=== PATIENT | male | born 1975 | race Caucasian/White ===

== ENCOUNTER 2020-05-28 04:34 | Inpatient (IN) | payer MEDICARE, OTHER ==
[~2020-05-28] VITALS: Ht 175.3 cm; Wt 91.2 kg
--- NOTE | 2020-05-28 04:39 | NUR ---
PT AAOX4. 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 PT WAS GIVEN 2NITRO SL AND ASPIRIN. PT PLACED IN BED 9 ON MONITOR AND PULSE OX. PT STATED HIS CP RADIATES TO HIS BACK AND L ARM. AWAITING MD FOR EVLA AND ORDERS.
[2020-05-28] MEDS ORDERED: MORPHINE SULFATE INJ 2 MG/ML DISP.SYRIN IV ONE (05:00)
[2020-05-28] MEDS ORDERED: MORPHINE SULFATE INJ 2 MG/ML DISP.SYRIN ONE (05:12)
--- NOTE | 2020-05-28 05:29 | NUR ---
VILMAID SWABBED, SENT TO LAB.
--- NOTE | 2020-05-28 05:32 | NUR ---
TECHNICIAN AUTOMATED EQUIPMENT AT BEDSIDE FOR LABS. UNABLE TO DRAW, WILL CALL ANOTHER TECHNICIAN AUTOMATED EQUIPMENT.
[2020-05-28 06:00] LABS: BASOPHILS % (AUTO) 0.2 % (0.0-2.0); EOSINOPHILS % (AUTO) 2.7 % (0.0-6.0); HEMATOCRIT 31 % (39-51); HEMOGLOBIN 10.3 g/dL (13.5-17.5); LYMPHOCYTES # (AUTO) 1.6 /CMM (0.8-4.8); MEAN CORPUSCULAR HGB CONC 34 g/dl (31.0-36.0); MEAN CORPUSCULAR VOLUME 94 fL (80-96); MONOCYTES # (AUTO) 0.4 /CMM (0.1-1.30); MONOCYTES % (AUTO) 5.8 % (2.0-12.0); NEUTROPHILS # (AUTO) 4.9 /CMM (1.8-8.9); NEUTROPHILS % (AUTO) 68.3 % (43.0-81.0); PLATELET COUNT (AUTO) 135 /CMM (150-450); RED BLOOD CELL COUNT(AUTO) 3.26 MIL/uL (4.5-6.0); WHITE BLOOD COUNT (AUTO) 7.1 K/uL (4.3-11.0)
[2020-05-28] MEDS ORDERED: HYDROMORPHONE 1 MG/1 ML DISP.SYRIN ONE ×2 (06:06→09:13)
[2020-05-28 06:21] LABS: BILIRUBIN,DIRECT 0.2 mg/dL (0.0-0.2); BILIRUBIN,TOTAL 0.4 mg/dL (0.2-1.0); POTASSIUM 4.6 mmol/L (3.5-5.1); TOTAL PROTEIN, SERUM 7.3 g/dL (6.4-8.2)
[2020-05-28 06:22] LABS: CREATININE 8.7 mg/dL (0.6-1.3)
[2020-05-28] MEDS ORDERED: HYDROMORPHONE 1 MG/1 ML DISP.SYRIN IV ONE ×2 (06:30→09:00)
--- NOTE | 2020-05-28 06:30 | NUR ---
call from lab. rapid covid negative.
[2020-05-28] MEDS ORDERED: ACETAMINOPHEN 325 MG TABLET PO PRN (07:00)
[2020-05-28] MEDS ORDERED: MAG HYDROX/AL HYDROX/SIMETH 30 ML UDC PO PRN (07:00)
[2020-05-28] MEDS ORDERED: DOCUSATE SODIUM 100 MG CAPSULE PO PRN (07:00)
--- NOTE | 2020-05-28 07:12 | NUR ---
ENDORSEMENT RECEIVED FROM SARABJIT BREWER FOR GUERLINE
--- NOTE | 2020-05-28 08:41 | NUR ---
BOWLING BALL GRADER AND MARKER AT BEDSIDE FOR CHELSEY
--- NOTE | 2020-05-28 09:25 | NUR ---
LEATHER PATCHER FAILED ATTEMPT TO COLLECT BLOOD SAMPLE FOR 2ND TROPONIN
[2020-05-28] MEDS ORDERED: CLON0.3T PO (09:40)
[2020-05-28] MEDS ORDERED: INSU100V7 SQ (09:40)
[2020-05-28] MEDS ORDERED: PANT40TA2 PO (09:40)
[2020-05-28] MEDS ORDERED: HYDR100T27 PO (09:40)
[2020-05-28] MEDS ORDERED: DOXA8TAB79 PO (09:40)
--- NOTE | 2020-05-28 10:40 | NUR ---
PARK GUIDE AT BEDSIDE FOR TROPONIN LAB TEST
[2020-05-28] MEDS ORDERED: IOHEXOL-350 100 ML VIAL IV ONE (10:58)
--- NOTE | 2020-05-28 11:02 | NUR ---
DR STEPHENS AT BEDSIDE
--- NOTE | 2020-05-28 11:09 | NUR ---
CERTIFIED SCRUB TECH AT BEDSIDE, PER DR STEPHENS..OK TO CONTINUE CTA. PATIENT WHEELED OUT VIA GURNEY TO CT SCAN
--- NOTE | 2020-05-28 11:10 | NUR ---
MADE DR DAS AWARE OF PATIENT'S BP.
[2020-05-28] MEDS ORDERED: NITROGLYCERIN 0.4 MG/TAB BOTTLE SL PRN (11:30)
[2020-05-28] MEDS: METOPROLOL TARTRATE INJ 5 MG/5 ML AMPUL IVP PRN ×2 (11:35→11:40)
[2020-05-28] MEDS ORDERED: NITROGLYCERIN 0.4 MG/TAB BOTTLE ONE (11:43)
[2020-05-28] MEDS ORDERED: hydrALAZINE HCL IV 20 MG VIAL IV ONE (12:30)
[2020-05-28] MEDS ORDERED: hydrALAZINE HCL IV 20 MG VIAL ONE (12:30)
--- NOTE | 2020-05-28 12:33 | NUR ---
NURSING SUP GAVE TELE BED 307.
--- NOTE | 2020-05-28 12:40 | NUR ---
report given to Dutch BREWER for izabel
[2020-05-28 12:49] LABS: THYROID STIMULATING HORMONE 2.983 uIU/mL (0.358-3.74)
[2020-05-28] MEDS ORDERED: HEPARIN SODIUM, PORCINE 5000 UNITS/1 ML VIAL SQ SCH (13:04)
[2020-05-28 13:10] VITALS: BP 189/83
--- NOTE | 2020-05-28 13:10 | NUR ---
MECHANICAL LEAD ADMITTING NOTE PATIENT IN BED RESTING COMFORTABLY. PATIENT IN NO ACUTE DISTRESS. NO SOB NOTED. PATIENT BREATHING IS EVEN AND UNLABORED. PATIENT ON CARDIAC MONITORING READING SINUS RHYTHM HR 68. PATIENT STATES CHEST PAIN AT 4/10. PATIENT SAFETY PRECAUTIONS IN PLACE. PATIENT STATES REFUSAL OF SKIN ASSESSMENT, DESPITE EDUCATION OF RISKS VS BENEFITS. PATIENT WITH RIGHT LEG PROSTHESIS. PATIENT BED IS LOCKED AND IN LOWEST POSITION. CALL LIGHT WITHIN REACH. WILL CONTINUE TO MONITOR. DR. FELIPE AWARE OF PATIENT ARRIVAL ON UNIT.
[2020-05-28 13:14] LABS: IRON, SERUM 65 ug/dl (50-175); TOTAL IRON BINDING CAPACITY 189 ug/dl (250-450)
[2020-05-28] MEDS: METOPROLOL TARTRATE 50 MG TABLET PO SCH ×2 (13:26→17:13)
[2020-05-28] MEDS: ASPIRIN 81 MG TAB.CHEW PO SCH (13:26)
--- NOTE | 2020-05-28 13:26 | NUR ---
SUPERVISOR PYROTECHNIC LOADING NOTE PATIENT REFUSED SCHEDULED HEPARIN SQ. EDUCATED RISKS VS BENEFITS. PATIENT CONTINUED TO REFUSE.
[2020-05-28] MEDS: MORPHINE SULFATE INJ 2 MG/ML DISP.SYRIN IV PRN ×3 (14:14→21:03)
--- NOTE | 2020-05-28 14:49 | NUR ---
BRUSH FABRICATION SUPERVISOR NOTE AFTER REASSESSMENT OF MORPHINE FOR CHEST PAIN. PATIENT STATES CHEST PAIN WENT DOWN AND IS AT 2/10 AND IS IN NO ACUTE DISTRESS.
[2020-05-28 15:00] VITALS: BP 162/88
[2020-05-28 16:05] VITALS: BP 181/85
[2020-05-28] MEDS: ONDANSETRON HCL/PF 4 MG/2 ML VIAL IVP PRN (16:06)
--- NOTE | 2020-05-28 16:12 | NUR ---
SALES AGENT NOTE PATIENT COMPLAINING OF CHEST PAIN 02/24. PATIENT STATES NITROSTAT DOES NOT WORK EFFECTIVELY FOR HIM. PRN MORPHINE ORDERED TO BE GIVEN.
[2020-05-28 16:24] LABS: MAGNESIUM 2.5 mg/dL (1.8-2.4)
--- NOTE | 2020-05-28 17:00 | NUR ---
COIN MACHINE COLLECTOR NOTE AFTER REASSESSMENT OF MORPHINE PRN THAT WAS GIVEN, PATIENT CHEST PAIN NOW 1/10 PER PATIENT. PATIENT IN NO ACUTE DISTRESS.
[2020-05-28] MEDS ORDERED: DEXTROSE 50%-WATER 50 ML DISP.SYRIN IV PRN (17:30)
[2020-05-28] MEDS: BLOOD SUGAR DIAGNOSTIC 1 EACH STRIP IN SCH ×2 (17:54→23:03)
--- NOTE | 2020-05-28 18:00 | NUR ---
BUILDING CONSTRUCTION CONTRACTOR NOTE PATIENT STATES NO CHEST PAIN AT THIS TIME. PATIENT NEEDS AND CONCERNS ADDRESSED.
--- NOTE | 2020-05-28 18:32 | NUR ---
PRINCIPAL ASSOCIATE NOTE INFORMED DR. BANKS THAT PATIENT DOES NOT LIKE TO TAKE HEPARIN DUE TO PREVIOUS ENCOUNTERS WITH HEPARIN MEDICATIONS STATING HE BLEEDS EASY AND HAS NOSE BLEEDS AND EAR BLEEDS. PER DR. BANKS DISCONTINUE THE MEDICATION.
--- NOTE | 2020-05-28 18:49 | NUR ---
MS RN NOTE PATIENT IS IN BED RESTING COMFORTABLY. PATIENT IS IN NO ACUTE DISTRESS. NO SOB NOTED. PATIENTS BREATHING IS EVEN AND UNLABORED. PATIENT IS ON THE TOP INSTALLER, SINUS RHYTHM HR 65. PATIENT KEPT CLEAN AND DRY, COMFORTABLY THROUGHOUT THE SHIFT. NO FACIAL GRIMACING NOTED. PATIENTS BED IS LOCKED AND AT THE LOWEST POSITION, CALL LIGHT WITHIN REACH. ENDORSE TO THE FORENSIC MATERIALS ENGINEER NURSE FOR GUERLINE.
[2020-05-28 20:00] VITALS: BP 188/93
[2020-05-28] MEDS: NITROGLYCERIN 0.4 MG/TAB BOTTLE SL PRN ×3 (20:32→20:50)
--- NOTE | 2020-05-28 20:38 | NUR ---
teletype or varitype keyboard operator note informed tracey dunbar np that patient is about to receive dialysis and usually received 25mg iv push to premedicate but there is no order. bettina telephone order 25mg iv one time. order read back note and carried out.
[2020-05-28] MEDS ORDERED: diphenhydrAMINE HCL 50 MG/ML VIAL IV ONE ×2 (21:00)
--- NOTE | 2020-05-28 21:07 | NUR ---
BARGAIN TABLE CLERK NOTE 2032 PATIENT C/O CHEST PAIN 9/10 BOTH SIDES OF CHEST RADIATING TO BACK. BP 188/93. NITOR#1 GIVEN. PATIENT REFUSE O2 AT THIS TIME. 2043 STILL C/O CHEST PAIN 9/10 BILATERAL CHEST STILL RADIATING TO BACK. NITRO#2 GIVEN BP 136/72. ALLOWED OXYGEN 2L/MIN VIA NASAL CANNULA AT THIS TIME. 2048 STILL C/O CHEST PAIN 9/10, LEFT AND RIGHT SIDE OF CHEST. NITRO #3 GIVEN. BP 148/77. 2099 PATIENT STATED CHEST PAIN REMAINS THE SAME. 03/26. MORPHINE 1MG GIVEN. STILL REMAINS WITH 02 VIA NASAL CANNULA. INFORMED PATIENT TO INFORM ME IN 30 MINS IF CHEST PAIN CONTINUES. WILL CONTINUE TO MONITOR. Addendum: 05/28/20 at 6554 by EBONY JAMES RN Augustine BREWER witnessed waste and placement into RX destroyer in medication room.
--- NOTE | 2020-05-28 22:57 | NUR ---
teletypewriter installer note director compliance removed 2700ml from patient. bp is 154/85. patient is resting in bed. asleep. will continue to monitor.
--- NOTE | 2020-05-28 23:15 | NUR ---
telecommunications consultant note patient blood sugar is 160. no insulin sliding scale at this time. dr. og note shows monitor blood sugar routinely and f/u ha1c for monitoring of control. informed senior coldfusion developer mele dunbar NP. will continue to monitor.
[2020-05-29] VITALS: BP 142/76
[2020-05-29] MEDS: METOPROLOL TARTRATE 50 MG TABLET PO SCH ×4 (00:15→17:29)
[2020-05-29 04:00] VITALS: BP 155/76
[2020-05-29] MEDS: NITROGLYCERIN 0.4 MG/TAB BOTTLE SL PRN ×9 (05:38→21:07)
--- NOTE | 2020-05-29 05:40 | NUR ---
telegraph repeater mechanic note patient c/o chest pain 10/10 in left and right radiating to back. o2 2l/min via nasal cannula placed. bp 190/84. nitro#1 given. will continue to monitor
--- NOTE | 2020-05-29 05:44 | NUR ---
telephone station repairer note patient still c/o pain 10/10 in chest radiating to back. bp 155/76 hr 67. nitro#2 given. continue to have 02. will continue to monitor.
--- NOTE | 2020-05-29 05:50 | NUR ---
telehealth nurse note patient continues to have chest pain 10/10 in chest radiating to back. nasal cannula still on running 2l/min bp 143/ 85 hr 67. nitro #3 given. will continue to monitor.
[2020-05-29] MEDS: MORPHINE SULFATE INJ 2 MG/ML DISP.SYRIN IV PRN ×5 (06:00→17:29)
--- NOTE | 2020-05-29 06:04 | NUR ---
telegraph and teletype operator note administered prn morphine for chest pain 10/10 in chest, feels like pressure/crushing, radiating to back, nitro did not work for patient. bp 142/79 hr 67. oxygen still on. informed if continues to have chest pain in 30 minutes to inform me or any staff. will continue to monitor.
[2020-05-29] MEDS: BLOOD SUGAR DIAGNOSTIC 1 EACH STRIP IN SCH ×4 (06:30→22:10)
--- NOTE | 2020-05-29 07:30 | NUR ---
RADIOLOGICAL HEALTH SPECIALIST OPENING NOTE RECEIVED PATIENT IN BED. A/OX4. CURRENTLY TOLERATING ROOM AIR. RESPIRATIONS ARE EVEN AN UNLABORED. NO S/S SOB NOTED. NO C/O PAIN AT THIS TIME. EXTERNAL TELE MONITOR READS SINUS RHYTHM HR 64. IN NO APPARENT DISTRESS. IV ACCESS IN LAC#20 PATENT AND SALINE LOCKED. BED IS LOW AND LOCKED, HOB ELEVATED IN SEMI MCCRACKEN,SIDE RAILS UP X2, CALL LIGHT WITHIN REACH. WILL CONTINUE TO MONITOR
--- NOTE | 2020-05-29 07:30 | NUR ---
AIRPLANE CHARTER CLERK CLOSING NOTE PATIENT RESTING IN BED. A/OX4. ON OXYEGN 2L/MIN VIA NASAL CANNULA. RESPIRATIONS ARE EVEN AN UNLABORED. NO S/S SOB NOTED. 2 EPISODES OF CHEST PAIN, BOTH PROVIDED NITROX3, AND MORPHINE X1. PATIENT STATES NITRO DOES NOT WORK FOR HIM, MORPHINE WORKS. EXTERNAL TELE MONITOR READS SINUS RHYTHM HR 60S. IV ACCESS MAINTAINED IN LAC#20 PATENT AND SALINE LOCKED. BED REMAINS LOW AND LOCKED, HOB ELEVATED IN SEMI MCCRACKEN,SIDE RAILS UP X2, CALL LIGHT WITHIN REACH. WILL ENDORSE TO NEXT SHIFT.
--- NOTE | 2020-05-29 07:30 | NUR ---
TELE/RN OPENING NOTE Patient resting in bed, A&O x 4. No complaints of pain/discomfort at this time. Breathing even and non-labored on 2L via NC, patient removes it intermittently. No respiratory or cardiac distress noted. On tele monitor, reading SR 74. IV access noted on RAC #20g, patent and intact, and flushing well. R chest permacath noted. R AKA noted. Bed locked to its lowest position, side rails x 2 up, call light in hand. Will continue with current medical management.
[2020-05-29 08:00] VITALS: BP 179/88
--- NOTE | 2020-05-29 08:00 | NUR ---
TELE/RN NOTE Dr. Cristobal at bedside, notified him about patient's recurring chest pains. Per MD, we are still awaiting for cardiology follow up.
[2020-05-29] MEDS: ASPIRIN 81 MG TAB.CHEW PO SCH (08:42)
--- NOTE | 2020-05-29 09:00 | NUR ---
TELE/RN NOTE Patient experiencing a 10/10 tight chest pain radiating to the back, initiated protocol per MD's orders: administered nitroglycerin 0.4 mg SL, will assess after 5 minutes for pain relief.
--- NOTE | 2020-05-29 09:10 | NUR ---
TELE/RN NOTE Patient still experiencing a 10/10 tight chest pain radiating to the back, continued protocol per MD's orders: administered nitroglycerin 0.4 mg SL, will assess again after 5 minutes for pain relief.
--- NOTE | 2020-05-29 09:15 | NUR ---
TELE/RN NOTE Patient is still experiencing a 10/10 tight chest pain radiating to the back, states "nitro doesn't work for me, but I'll give it another try after the third dose." Maintained protocol per MD's orders: administered nitroglycerin 0.4 mg SL, will assess after 5 minutes for pain relief.
--- NOTE | 2020-05-29 09:20 | NUR ---
TELE/RN NOTE Patient states no relief from nitroglycerin 0.4 mg q5min x 3, still complains of 10/10 tight chest pain radiating to the back. Administered morphine 1 mg q30min IV, following MD's orders. Will continue to monitor.
[2020-05-29 09:53] LABS: BASOPHILS # (AUTO) 0.1 /CMM (0.0-0.2); HEMATOCRIT 33 % (39-51); HEMOGLOBIN 10.8 g/dL (13.5-17.5); LYMPHOCYTES # (AUTO) 1.3 /CMM (0.8-4.8); LYMPHOCYTES % (AUTO) 20.5 % (20.0-44.0); MEAN CORPUSCULAR HGB CONC 33 g/dl (31.0-36.0); MEAN CORPUSCULAR VOLUME 96 fL (80-96); MONOCYTES # (AUTO) 0.3 /CMM (0.1-1.30); MONOCYTES % (AUTO) 5.5 % (2.0-12.0); NEUTROPHILS # (AUTO) 4.3 /CMM (1.8-8.9); PLATELET COUNT (AUTO) 132 /CMM (150-450); RED BLOOD CELL COUNT(AUTO) 3.45 MIL/uL (4.5-6.0); WHITE BLOOD COUNT (AUTO) 6.2 K/uL (4.3-11.0)
--- NOTE | 2020-05-29 09:55 | NUR ---
TELE/RN NOTE Patient states slight relief after 30 mins of administering morphine 1 mg, still complains of 9/10 tight chest pain radiating to the back. Administered morphine 1 mg q30min IV, second dose, following MD's orders. Will continue to monitor. Addendum: 05/29/20 at 2023 by CHAPARRO CADET RN CORRECTION: TIME NOTED SHOULD BE AT 7962
[2020-05-29 10:56] LABS: THYROID STIMULATING HORMONE 2.6 uIU/mL (0.358-3.74)
--- NOTE | 2020-05-29 11:00 | NUR ---
TELE/RN NOTE After 30 mins of administering the second dose of morphine 1 mg, patient's pain level lowered down to a 8/10 tight chest pain radiating to the back. Patient is resting and dozing intermittently, per patient, he is currently comfortable.
[2020-05-29] MEDS: ISOSORBIDE DINITRATE (20MG) 20 MG TABLET PO SCH ×2 (11:29→17:02)
[2020-05-29] MEDS: hydrALAZINE HCL 50 MG TABLET PO SCH ×3 (11:30→17:03)
--- NOTE | 2020-05-29 11:30 | NUR ---
TELE/RN NOTE BS noted at 195. Asked Dr. Cristobal if he wants to order an insulin sliding scale, since patient takes insulin lantus at home as well. Per med reconciliation record, patient takes insulin lantus [address] Cristobal, "no need for insulin sliding scale, just order the insulin lantus that he takes at home. Just monitor his blood sugar." Orders carried out, will continue to monitor.
[2020-05-29 12:00] VITALS: BP 137/75
--- NOTE | 2020-05-29 12:00 | NUR ---
TELE/RN NOTE Assessed patient's chest pain level, states "it lowered down to a 3." Will continue to monitor.
[2020-05-29] MEDS ORDERED: INSULIN GLARGINE, 100 UNIT/ML CARTRIDGE SQ SCH (13:00)
[2020-05-29 13:32] LABS: ALBUMIN 2.9 g/dL (3.4-5.0); BILIRUBIN,TOTAL 0.4 mg/dL (0.2-1.0); CALCIUM, SERUM 9.5 mg/dL (8.5-10.1); MAGNESIUM 2.3 mg/dL (1.8-2.4); POTASSIUM 5.7 mmol/L (3.5-5.1); TOTAL PROTEIN, SERUM 7.3 g/dL (6.4-8.2)
[2020-05-29 13:52] LABS: CREATININE 7.9 mg/dL (0.6-1.3)
[2020-05-29 16:00] VITALS: BP 184/86
--- NOTE | 2020-05-29 16:55 | NUR ---
TELE/RN NOTE Patient experiences another episode of 10/10 tight chest pain radiating to the back. Patient refuses to take nitroglycerin, stating "it's just wasting my time, I'd rather have morphine right now." Explained its risks and benefits. Administered morphine 1 mg q30min IV, following MD's orders. Will continue to monitor.
--- NOTE | 2020-05-29 17:29 | NUR ---
TELE/RN NOTE After first dose of morphine, patient states pain lowered down to a 8/10 tight chest pain radiating to the back. Patient requests for second dose of morphine 1 mg. Administered morphine 1 mg q30min IV, following MD's orders. Will continue to monitor.
--- NOTE | 2020-05-29 19:00 | NUR ---
TELE/RN CLOSING NOTE Patient resting in bed, A&O x 4. All needs met and attended to. Patient states pain lowered down to 7 for chest pain. Breathing even and non-labored on RA. No respiratory or cardiac distress noted. On tele monitor, reading SR 80. IV access noted on RAC #20g, patent and intact, and flushing well. R chest permacath noted. R AKA noted. Fall precautions maintained. Will endorse to night guard nurse.
--- NOTE | 2020-05-29 19:30 | NUR ---
ARC CUTTER OPENING NOTE RECEIVED PATIENT IN BED. A/OX4. CURRENTLY TOLERATING ROOM AIR. RESPIRATIONS ARE EVEN AN UNLABORED. NO S/S SOB NOTED. C/O CHEST PAIN NOT MANAGED BY MORPHINE WILL INFORM MASHA ELECTRIC POWER SUPERINTENDENT. EXTERNAL TELE MONITOR READS SINUS RHYTHM HR 67. IV ACCESS IN LAC#20 PATENT AND SALINE LOCKED. BED IS LOW AND LOCKED, HOB ELEVATED IN SEMI MCCRACKEN,SIDE RAILS UP X2, CALL LIGHT WITHIN REACH. WILL CONTINUE TO MONITOR
--- NOTE | 2020-05-29 19:48 | NUR ---
telegraph plant maintainer note patient is experiencing chest pain, states unreleaved by morphine that was received earlier at 1729. informed director corporate communications mele dunbar np, and that patient is requesting stronger medication like diluadid. Melania DIE ATTACHING MACHINE TENDER stated morphine is drug of choice for CAD. order received for morphine 1mg iv one time now. order read back noted and carried out. called [facility] to verify medication, will continue to monitor.
[2020-05-29 20:00] VITALS: BP 167/77
[2020-05-29] MEDS ORDERED: MORPHINE SULFATE INJ 2 MG/ML DISP.SYRIN IV ONE (20:00)
[2020-05-29] MEDS: ONDANSETRON HCL/PF 4 MG/2 ML VIAL IVP PRN (20:53)
--- NOTE | 2020-05-29 20:55 | NUR ---
television anchor note patient is vomiting, administered zofran 4mg. will continue to monitor.
--- NOTE | 2020-05-29 21:54 | NUR ---
STUDIO MUSICIAN NOTE OLGA LIDIA FLANAGAN PARTS LISTER RETURNED CALL. INFORMED THAT PATIENT IS STILL EXPERIENCING CHEST PAIN 10/10 RADIATING TO BACK. THE MORPHINE ONE TIME DOSE EARLIER DID NOT HELP. GAVE NITRO X3 BECAUSE WAS NOT ADMINISTERED FOR 11 HOURS AND PATIENT CONTINUES TO HAVE PAIN. MASHA PARTS LISTER ORDERED DILUADID 0.5 MG IV ONE TIME ONLY. ORDER READ BACK NOTED AND CARRIED OUT. CALLED [facility] TO VERIFY MEDICATION. WILL CONTINUE TO MONITOR.
[2020-05-29] MEDS: INSULIN GLARGINE, 100 UNIT/ML CARTRIDGE SQ SCH (22:00)
[2020-05-29] MEDS ORDERED: HYDROMORPHONE 1 MG/1 ML DISP.SYRIN IV ONE (22:00)
--- NOTE | 2020-05-29 22:14 | NUR ---
PRIMER WATERPROOFING MACHINE ADJUSTER NOTE PATIENT BLOOD SUGAR IS 135. LANTUS 20 UNIT SCHEDULED. PATIENT REFUSED. STATES WILL BECOME HYPOGLYCEMIC. WILL CONTINUE TO MONITOR.
[2020-05-30] VITALS (10 sets, daily range): BP systolic 137–212; BP diastolic 47–103
[2020-05-30] MEDS: METOPROLOL TARTRATE 50 MG TABLET PO SCH ×5 (00:25→23:26)
--- NOTE | 2020-05-30 03:12 | NUR ---
television inspector note no photos taken per protocol Qsunday. patient continues to refuse photos to be taken. will continue to monitor.
--- NOTE | 2020-05-30 04:10 | NUR ---
teletype operator note patient continues to have episodes of nausea and vomiting. zofran 4mg given. will continue to monitor. patient also complaining of chest pain informed him will start giving nitro now.
[2020-05-30] MEDS: NITROGLYCERIN 0.4 MG/TAB BOTTLE SL PRN ×3 (04:11→04:29)
[2020-05-30] MEDS: ONDANSETRON HCL/PF 4 MG/2 ML VIAL IVP PRN (04:15)
--- NOTE | 2020-05-30 04:35 | NUR ---
telehealth coordinator note administered nitro x3. patient still complains of chest pain 10/10 in chest feeling light pressure and tight, radiating to back. oxygen 2l/min via nasal cannula on patient. will administer morphine 1mg for chest pain. will continue to monitor.
[2020-05-30] MEDS: MORPHINE SULFATE INJ 2 MG/ML DISP.SYRIN IV PRN ×3 (04:36→22:26)
[2020-05-30] MEDS ORDERED: MORPHINE SULFATE INJ 2 MG/ML DISP.SYRIN IV ONE (06:00)
--- NOTE | 2020-05-30 06:00 | NUR ---
telephone station installer note administered morphine 1mgx2 30 mins apart as ordered for chest pain. patient states continues to be 10/10 pressure, tight and radiating to back. o2 still on. will inform mele dunbar SIGNS AND DISPLAYS SALESPERSON. that patient pain is not managed and there are no more prn orders. patient also continues to have nausea and vomiting. arnav did not manage it. will await orders.
--- NOTE | 2020-05-30 06:10 | NUR ---
teletypesetter monitor notes Melania SAS PROGRAMMER ordered morphine 1mg x1 and reglan 10mg iv x1, order read back noted and carried out. called [facility] to verify order for patient.
[2020-05-30] MEDS ORDERED: METOCLOPRAMIDE HCL 10 MG/2 ML VIAL IV ONE (06:30)
--- NOTE | 2020-05-30 06:30 | NUR ---
telegraphic typewriter installer note informed dr. stokes, manager training and development, that patient has has been having consistent chest pain throughout the shift, nitrox3 given and morphine 1mg x2 30 mins apart given. did not work and currently going to administer morphine 1mg now per bettina. dr. stokes ordered ekg stat and let him know the results. called RT extension to notify, stated currently giving report then someone will come to unit.
[2020-05-30] MEDS: BLOOD SUGAR DIAGNOSTIC 1 EACH STRIP IN SCH ×4 (06:35→22:40)
--- NOTE | 2020-05-30 07:15 | NUR ---
teletypewriter operator note informed dr. stokes ekg results sinus [facility]. dr. stokes ordered npo except meds patient is going to medical lab technologist today. order noted and carried out. patient stated pain is now 5/10. will endorse to next shift.
--- NOTE | 2020-05-30 07:50 | NUR ---
telehealth nurse educator note production laborer called to inform patient is going to go to production laborer at 1200, informed day RN and informed patient. patient also informed to be npo except meds.
--- NOTE | 2020-05-30 07:55 | NUR ---
DIRECTOR OF MUSIC CLOSING NOTE PATIENT IN BED. A/OX4. ON OXYGEN 2L/MIN VIA NASAL CANNULA. NO RESPIRATORY DISTRESS. C/O CHEST PAIN THROUGHOUT SHIFT, NAUSEA AND VOMITING THROUGHOUT SHIFT. STATES CHEST PAIN NOW 5/10. EXTERNAL TELE MONITOR READS SINUS RHYTHM HR 60S. IV ACCESS MAINTAINED IN LAC#20. BED REMAINS LOW AND LOCKED, HOB ELEVATED IN HIGH MCCRACKEN,SIDE RAILS UP X2, CALL LIGHT WITHIN REACH. WILL ENDORSE TO NEXT SHIFT.
[2020-05-30 08:56] LABS: BASOPHILS # (AUTO) 0.1 /CMM (0.0-0.2); BASOPHILS % (AUTO) 1.2 % (0.0-2.0); HEMATOCRIT 32 % (39-51); HEMOGLOBIN 10.4 g/dL (13.5-17.5); LYMPHOCYTES # (AUTO) 1.4 /CMM (0.8-4.8); LYMPHOCYTES % (AUTO) 20.8 % (20.0-44.0); MEAN CORPUSCULAR HGB CONC 33 g/dl (31.0-36.0); MEAN CORPUSCULAR VOLUME 95 fL (80-96); MONOCYTES # (AUTO) 0.4 /CMM (0.1-1.30); MONOCYTES % (AUTO) 6.1 % (2.0-12.0); NEUTROPHILS # (AUTO) 4.8 /CMM (1.8-8.9); NEUTROPHILS % (AUTO) 68.9 % (43.0-81.0); PLATELET COUNT (AUTO) 132 /CMM (150-450); RED BLOOD CELL COUNT(AUTO) 3.33 MIL/uL (4.5-6.0); WHITE BLOOD COUNT (AUTO) 6.9 K/uL (4.3-11.0)
[2020-05-30] MEDS: ASPIRIN 81 MG TAB.CHEW PO SCH (08:56)
[2020-05-30] MEDS: hydrALAZINE HCL 50 MG TABLET PO SCH ×3 (08:57→18:56)
[2020-05-30] MEDS: ISOSORBIDE DINITRATE (20MG) 20 MG TABLET PO SCH ×2 (08:58→18:57)
[2020-05-30 09:18] LABS: CALCIUM, SERUM 9.6 mg/dL (8.5-10.1)
[2020-05-30 10:07] LABS: CREATININE 9.7 mg/dL (0.6-1.3); POTASSIUM 6.2 mmol/L (3.5-5.1)
[2020-05-30] MEDS: PANTOPRAZOLE 40 MG TABLET.DR PO SCH (10:19)
[2020-05-30] MEDS ORDERED: IODIXANOL 300 ML IV ONE (11:26)
[2020-05-30] MEDS ORDERED: LIDOCAINE HCL/PF 1% 30 ML SDV ONE (11:27)
[2020-05-30] MEDS ORDERED: MIDAZOLAM HCL 2 MG/2ML VIAL ONE (11:28)
[2020-05-30] MEDS ORDERED: FENTANYL PF 100MCG/2ML AMPUL ONE (11:28)
[2020-05-30] MEDS ORDERED: IV NS 0.9% 1,000 ML ONE (11:29)
[2020-05-30] MEDS: CLONIDINE HCL 0.1 MG TABLET PO SCH ×3 (12:20→22:39)
--- NOTE | 2020-05-30 12:21 | NUR ---
MARKETING LEAD NOTES PATIENT PICKED TO PATIENT ACCOUNT ANALYST AT 1050. PATIENT WILL HAVE PROCEDURE. CAN NOT ADMINISTER 1200 AND 1300 MEDICATIONS AT THIS TIME.
[2020-05-30] MEDS ORDERED: NICARDIPINE HCL 25 MG/10 ML VIAL IV ONE (12:23)
[2020-05-30] MEDS ORDERED: HEPARIN SODIUM, PORCINE 1,000 UNIT/ML VIAL ONE (12:34)
[2020-05-30] MEDS ORDERED: IODIXANOL 320MG/ML 50 ML IV ONE (12:35)
[2020-05-30] MEDS ORDERED: TICAGRELOR 90 MG TABLET PO ONE (12:53)
--- NOTE | 2020-05-30 12:58 | NUR ---
CORN PICKER NOTES PATIENT WILL BE GOING FROM PRESSING MACHINE TENDER TO ICU.
[2020-05-30] MEDS ORDERED: hydrALAZINE HCL 50 MG TABLET PO SCH (13:00)
--- NOTE | 2020-05-30 14:30 | NUR ---
PT ARRIVED IN ICU FROM [facility] AT 1407, OOZING AT SITE. [facility] STAFF HELD PRESSURE AT RIGHT GROIN SITE, CLEAN DRESSING APPLIED.
[2020-05-30] MEDS: DOXAZOSIN MESYLATE (4 MG) 4 MG TABLET PO SCH (18:56)
--- NOTE | 2020-05-30 19:25 | NUR ---
DIALYSIS ENDED AT 1900, PT REFUSED MULTIPLE BP MEDS DUE AT 1700 & 1800, HELD UNTIL AFTER DIALYSIS. BP WAS 120'S AFTER DIALYSIS. RIGHT GROIN SITE IS SLIGHT OOZING, NOT INCREASED OVER THE PAST 3 HOURS.
--- NOTE | 2020-05-30 20:00 | NUR ---
PATIENT IN BED. A/OX4, AT ROOM AIR TOLERATED WELL, DENIES CHEST PAIN SR IN TELE MONITOR, IV ACCESS LAC#20 PATENT AND INTACT, S/P CANCERIZATION WITH STENT, NO ACTIVE BLEEDING NOTED, PULSES PRESENT, BLEED DURING THE DAY AND TH DRESSING SOAK FROM THE DAY, NO MORE BLEEDING AT THIS TIME, BED LOCKED AND LOW POSITION, SIDE RAILS UP X2, CALL LIGHT WITHIN REACH, WILL CONTINUE TO MONITOR CLOSELY.
[2020-05-30] MEDS: INSULIN GLARGINE, 100 UNIT/ML CARTRIDGE SQ SCH ×2 (22:00→22:44)
[2020-05-30] MEDS ORDERED: LABETALOL HCL IV 100MG VIAL ONE (23:15)
[2020-05-30] MEDS ORDERED: LABETALOL 20 MG/4 ML VIAL IV ONE (23:30)
--- NOTE | 2020-05-30 23:59 | NUR ---
AFTER 30 MIN OF ADMINISTRATION OF LEBETALOL 10MG IVP, AND PRIOR TO THAT 0.3 CLONIDINE, REPORTED TO OLGA LIDIA FLANAGAN MOTOR HOTEL MANAGER BLOOD PRESSURE AT THIS TIME 205/100, AWAITING FOR RESPONSE.
[2020-05-31] VITALS (23 sets, daily range): BP systolic 94–219; BP diastolic 53–106
[2020-05-31] MEDS: hydrALAZINE HCL 50 MG TABLET PO SCH ×4 (00:15→17:00)
--- NOTE | 2020-05-31 00:15 | NUR ---
PATIENT CONTINUE WITH PERSISTENT HIGH BLOOD PRESSURE, OLGA LIDIA BAZAN ORDERED TO GIVE THE HYDRALAZINE 100MG PO TID FROM THE MISSING [facility] LAST EVENING, NOTED AND GAVE IT.
[2020-05-31] MEDS ORDERED: MORPHINE SULFATE INJ 2 MG/ML DISP.SYRIN IV ONE ×2 (00:30)
--- NOTE | 2020-05-31 00:30 | NUR ---
INFORMED OLGA LIDIA BAZAN THAT PATIENT CONTINUE COMPLAINING OF PAIN AND ASKING FOR SOMETHING STRONGER, SHE REPLIED WITH ORDER FOR MORPHINE 1MG X1 NOW, AND CONTINUE WITH THE MORPHINE PRN
--- NOTE | 2020-05-31 01:08 | NUR ---
INFORMED OLGA LIDIA BAZAN AUTOMOTIVE SERVICE WRITER THAT PATIENT CONTINUE COMPLAINING OF PAIN AND HES ASKING FOR STRONGER PAIN MEDICATION, AND THAT PATIENT CONTINUE WITH BP 195/85, AND SHE REPLIED WITH NO NEW ORDER, SHE STATED NO MORE PAIN MEDICATION, AWARE OF HIGH BLOOD PRESSURE.
[2020-05-31] MEDS: hydrALAZINE HCL IV 20 MG VIAL IV PRN ×2 (01:17→05:25)
[2020-05-31] MEDS: MORPHINE SULFATE INJ 2 MG/ML DISP.SYRIN IV PRN ×3 (02:20→18:22)
[2020-05-31] MEDS: METOPROLOL TARTRATE 50 MG TABLET PO SCH ×3 (05:06→18:00)
[2020-05-31 05:07] LABS: BASOPHILS # (AUTO) 0.1 /CMM (0.0-0.2); BASOPHILS % (AUTO) 0.9 % (0.0-2.0); HEMATOCRIT 34 % (39-51); HEMOGLOBIN 11.1 g/dL (13.5-17.5); LYMPHOCYTES # (AUTO) 1.3 /CMM (0.8-4.8); MEAN CORPUSCULAR HGB CONC 33 g/dl (31.0-36.0); MEAN CORPUSCULAR VOLUME 95 fL (80-96); MONOCYTES # (AUTO) 0.4 /CMM (0.1-1.30); MONOCYTES % (AUTO) 6.2 % (2.0-12.0); NEUTROPHILS # (AUTO) 4.1 /CMM (1.8-8.9); NEUTROPHILS % (AUTO) 67.9 % (43.0-81.0); PLATELET COUNT (AUTO) 124 /CMM (150-450); RED BLOOD CELL COUNT(AUTO) 3.55 MIL/uL (4.5-6.0)
[2020-05-31 05:22] LABS: CALCIUM, SERUM 10.3 mg/dL (8.5-10.1)
--- NOTE | 2020-05-31 07:02 | NUR ---
PATIENT IN BED, ROOM AIR TOLERATED WELL, MAJOR PROBLEM HIGH BLOOD PRESSURE DURING THE NIGHT, MULTIPLE PAIN MEDICATIONS GIVEN AND PATIENT CONTINUE WITH BP AT 0632 160/90 MANUAL NO ACTIVE BLEEDING NOTED AT RIGHT FEMORAL SITE, C/O PAIN THROUGHOUT THE NIGHT, OLGA LIDIA AWARE, MORPHINE ADMINISTERED X3, MORE BLEEDING NOTED THROUGHOUT THE NIGHT, BED LOCKED AND LOW POSITION, SIDE RAILS UP X2, CALL LIGHT WITHIN REACH, WILL ENDORSE TO ONCOMING NURSE FOR CONTINUITY OF CARE.
[2020-05-31] MEDS: BLOOD SUGAR DIAGNOSTIC 1 EACH STRIP IN SCH ×4 (08:01→21:28)
[2020-05-31] MEDS: PANTOPRAZOLE 40 MG TABLET.DR PO SCH (08:01)
[2020-05-31] MEDS: DOXAZOSIN MESYLATE (4 MG) 4 MG TABLET PO SCH ×2 (09:40→17:00)
[2020-05-31] MEDS: ASPIRIN 81 MG TAB.CHEW PO SCH (09:40)
[2020-05-31] MEDS: CLONIDINE HCL 0.1 MG TABLET PO SCH ×3 (09:40→17:00)
[2020-05-31] MEDS: TICAGRELOR 90 MG TABLET PO SCH ×2 (09:41→17:49)
[2020-05-31] MEDS: ISOSORBIDE DINITRATE (20MG) 20 MG TABLET PO SCH ×2 (09:41→17:00)
--- NOTE | 2020-05-31 11:00 | NUR ---
DRESSING CHANGED ON RIGHT GROIN CARDIAC CATH SITE. SITE IS CLEAN AND DRY, NO OOZING NOTED. SMALL HEMATOMA NOTED WITH PAIN AT SITE. NO BRUISING NOTED.
[2020-05-31] MEDS: ONDANSETRON HCL/PF 4 MG/2 ML VIAL IVP PRN (13:13)
--- NOTE | 2020-05-31 14:50 | NUR ---
PT TRANSFERRED VIA BED TO ROOM 321-1, REPORT GIVEN TO GABE. ALL BELONGINGS SENT WITH PATIENT.
[2020-05-31] MEDS ORDERED: HYDROMORPHONE 1 MG/1 ML DISP.SYRIN IV ONE (15:00)
--- NOTE | 2020-05-31 15:20 | NUR ---
BAKER BENCH NOTES PATIENT TRANSFERRED FROM ICU TO ROOM 321-2 VIA HIS BED ACCOMPANIED BY CURB WORKER RAMY. A/OX4. ABLE TO MAKE NEEDS KNOWN WITH C/O RIGHT GROIN PAIN WITH SCALE OF 10/10, DILAUDID 0.5MG/0.5ML IVP ADMINISTERED ORDERED. PT WITH RIGHT BKA. ON ROOM AIR, TOLERATING WELL WITH NO ACUTE RESPIRATORY DISTRESS NOTED. TELE MONITOR SHOWS CURRENT READING OF SINUS RHYTHM HR 60S, NO C/O CARDIAC DISTRESS VOICED AT THIS TIME. IV ACCESS PRESENT ON LAC#20 INTACT,PATENT AND FLUSHES WELL. PERMA CATH IN PLACE TO RCW, DRESSING C/D/I. SAFETY MEASURES IN PLACE: BED PLACED IN LOW POSITION AND LOCKED, SIDE RAILS UP X2, CALL LIGHT WITHIN REACH. WILL CONTINUE TO MONITOR PT'S STATUS.
--- NOTE | 2020-05-31 18:27 | NUR ---
RN NOTES PT C/O RIGHT GROIN PAIN WITH SCALE OF 10/10, MORPHINE 3MG/1.5ML IVP ADMINISTERED AT 1822. WILL CONTINUE TO MONITOR..
--- NOTE | 2020-05-31 18:51 | NUR ---
SUPERVISOR SHEARING CLOSING NOTES PT IN BED AWAKE AND WATCHING TV AT THIS TIME. A/OX4. ABLE TO MAKE NEEDS KNOWN. ON ROOM AIR, TOLERATING WELL WITH NO ACUTE RESPIRATORY DISTRESS NOTED. TELE MONITOR SHOWS CURRENT READING OF SINUS RHYTHM HR 60S, NO C/O CHEST PAIN OR ANY CARDIAC DISTRESS VOICED. IV ACCESS ON LAC#20 INTACT,. PATENT AND FLUSHES WELL. ALL NEEDS AND CARE ATTENDED WELL. SAFETY MEASURES KEPT IN PLACE: BED IN LOW POSITION AND LOCKED, SIDE RAILS UP X2, CALL LIGHT WITHIN REACH. WILL ENDORSE TO KINDERGARTNER NURSE FOR GUERLINE.
--- NOTE | 2020-05-31 19:00 | NUR ---
WHOLESALE LOAN PROCESSOR OPENING NOTES RECEIVE PATIENT IN BED SLEEPING BUT EASILY AROUSABLE REMAINS FREE OF PAIN OR DISCOMFORT DENIES CHEST PAIN AT THIS TIME ON ROOM RESPIRATIONS EVEN AND UNLABORED WITH EQUAL RISE AND FALL OF CHEST, IV SITE TO LEFT AC #20 G INTACT AND PATENT NO REDNESS, NO INFILTRATION PRESENT, RIGHT CHEST WALL PERMACATH IN PLACE, DSG IS C/D/I. RIGHT GROIN S/P CATHERIZATION DSG IS C/D/I. ON FUNDRAISING CONSULTANT SB 59. NO DISTRESS PRESENT, ALL NEEDS ATTENDED AT THIS TIME,ORIENTED TO STAFF AND CALL LIGHT AND KEPT WITHIN REACH, SAFETY PRECAUTIONS RENDERED LOW BED AND LOCKED, BED ALARM IN PLACE, ALL NEEDS ATTENDED AT THIS TIME WILL CONTINUE TO MONITOR.
[2020-05-31] MEDS: INSULIN GLARGINE, 100 UNIT/ML CARTRIDGE SQ SCH ×2 (21:30→21:31)
--- NOTE | 2020-05-31 21:31 | NUR ---
zinc furnace charger notes lantus 20 unit non administered is a duplicate.
[2020-06-01] VITALS: BP 118/68
[2020-06-01] MEDS: MORPHINE SULFATE INJ 2 MG/ML DISP.SYRIN IV PRN ×3 (00:13→12:13)
--- NOTE | 2020-06-01 00:16 | NUR ---
yarn washer notes patient requested for morphine states pain 101/10 to right groin area, vs assessed wnl 118/68,58,94%, 18. morphine prn as ordered given 3mg/1.5ml, rest witness and and wasted with another evelin oakley. Addendum: 06/01/20 at 0647 by LIU ANTHONY RN CLARIFICATION PAIN 10/10
[2020-06-01] MEDS: METOPROLOL TARTRATE 50 MG TABLET PO SCH ×4 (01:08→18:00)
[2020-06-01 04:00] VITALS: BP 117/67
[2020-06-01 04:34] VITALS: BP 117/67
[2020-06-01] MEDS: BLOOD SUGAR DIAGNOSTIC 1 EACH STRIP IN SCH ×3 (06:08→17:30)
--- NOTE | 2020-06-01 06:47 | NUR ---
TOY ASSEMBLER WOOD CLOSING NOTES PATIENT IN BED SLEEPING BUT EASILY AROUSABLE REMAINS FREE OF PAIN OR DISCOMFORT DENIES CHEST PAIN AT THIS TIME ON ROOM AIR, RESPIRATIONS EVEN AND UNLABORED WITH EQUAL RISE AND FALL OF CHEST, IV SITE TO LEFT AC #20 G INTACT AND PATENT NO REDNESS, NO INFILTRATION PRESENT, RIGHT CHEST WALL PERMACATH IN PLACE, DSG IS C/D/I. RIGHT GROIN S/P CATHERIZATION DSG IS C/D/I. NO BLEEDING PRESENT, ON MOLDING AND TRIM INSTALLER SB 59. NO DISTRESS PRESENT, ALL NEEDS ATTENDED AT THIS TIME,ORIENTED TO STAFF AND CALL LIGHT AND KEPT WITHIN REACH, SAFETY PRECAUTIONS RENDERED LOW BED AND LOCKED, BED ALARM IN PLACE, ALL NEEDS ATTENDED AT THIS TIME WILL CONTINUE TO MONITOR AND ENDORSE TO NEXT SHIFT.
[2020-06-01 08:00] VITALS: BP 164/79
[2020-06-01] MEDS: PANTOPRAZOLE 40 MG TABLET.DR PO SCH (08:30)
[2020-06-01] MEDS: ASPIRIN 81 MG TAB.CHEW PO SCH (09:14)
[2020-06-01] MEDS: DOXAZOSIN MESYLATE (4 MG) 4 MG TABLET PO SCH ×2 (09:14→17:00)
[2020-06-01] MEDS: TICAGRELOR 90 MG TABLET PO SCH ×2 (09:15→19:41)
[2020-06-01] MEDS: ISOSORBIDE DINITRATE (20MG) 20 MG TABLET PO SCH ×2 (09:15→17:00)
[2020-06-01] MEDS: CLONIDINE HCL 0.1 MG TABLET PO SCH ×3 (09:15→17:00)
[2020-06-01] MEDS: hydrALAZINE HCL 50 MG TABLET PO SCH ×3 (09:18→17:00)
--- NOTE | 2020-06-01 09:25 | NUR ---
ms rn received on bed, awake,alert,oriented x4,not in any form of distress, respirations even and unlabored.no sob noted, lungs are diminished,abdomen soft,positve bowel sounds,denies pain at this time,all needs attended.
--- NOTE | 2020-06-01 09:50 | NUR ---
ms rn breakfast served,due meds given,tolerated well.b/p meds held due to patient will have hd today.
--- NOTE | 2020-06-01 13:00 | NUR ---
ms rn b/p meds held,still waiting for hd rn.
[2020-06-01 16:00] VITALS: BP 101/42
[2020-06-01] MEDS ORDERED: diphenhydrAMINE HCL 50 MG/ML VIAL IV ONE (16:00)
--- NOTE | 2020-06-01 17:30 | NUR ---
ms rn refused sugar check at this time, hd just completed.
[2020-06-01 18:00] VITALS: BP 123/55
--- NOTE | 2020-06-01 18:00 | NUR ---
ms rn held b/p meds at this time, w/ low bp.
--- NOTE | 2020-06-01 19:35 | NUR ---
ms rn patient went home, discharge instructions given,all needs attended
== END 2020-06-01 20:25 | disposition home or self-care (01) | DRG 246 ==
LOC: ER 04:37 → TELE 12:46 → ICU 05-30 13:57 → TELE 05-31 15:06 → MED 06-01 09:43
PROVIDERS: ADMIT Family Medicine; ATTEND Nurse Practitioner Acute Care
PROC: 5A1D70Z Performance of Urinary Filtration, Intermittent, Less than 6 Hours Per Day (ICD-10-PCS; 2020-05-28)
PROC: 4A023N7 Measurement of Cardiac Sampling and Pressure, Left Heart, Percutaneous Approach (ICD-10-PCS; principal; 2020-05-30)
PROC: 027034Z Dilation of Coronary Artery, One Artery with Drug-eluting Intraluminal Device, Percutaneous Approach (ICD-10-PCS; 2020-05-30)
PROC: B211YZZ Fluoroscopy of Multiple Coronary Arteries using Other Contrast (ICD-10-PCS; 2020-05-30)
DX: I25.110 Atherosclerotic heart disease of native coronary artery with unstable angina pectoris (principal); N18.6 End stage renal disease; J15.9 Unspecified bacterial pneumonia; E44.1 Mild protein-calorie malnutrition; I13.2 Hypertensive heart and chronic kidney disease with heart failure and with stage 5 chronic kidney disease, or end stage renal disease; J98.11 Atelectasis; I50.9 Heart failure, unspecified; E11.22 Type 2 diabetes mellitus with diabetic chronic kidney disease; Z99.2 Dependence on renal dialysis; D63.1 Anemia in chronic kidney disease; E78.5 Hyperlipidemia, unspecified; Z95.1 Presence of aortocoronary bypass graft; E88.09 Other disorders of plasma-protein metabolism, not elsewhere classified; N25.0 Renal osteodystrophy; Z89.511 Acquired absence of right leg below knee; E83.52 Hypercalcemia; I27.20 Pulmonary hypertension, unspecified
CPT/HCPCS: 36415; 71045-TC; 75574; 80048-TC; 80053-TC; 80061-TC; 80076-TC; 82728-TC; 82962-TC; 83540-TC; 83735-TC; 83880; 84100-TC; 84439-TC; 84443-TC; 84484-TC; 85025-TC; 85730-TC; 86706; 87081-TC; 87340; 90935-TC; 92980; 92982; 93307-TC; A6403; C1725; C1769; C1887; C1894; C9803; G0378; J0360; J1170; J1200; J1644; J1815; J2250; J2270; J2405; J2765; J3010; J3490; Q9967